=== PATIENT | female | born 1955 ===

== ENCOUNTER → 2022-01-31 | Outpatient (CLI) | payer BC | LOC: MC.RAD 15:27 | DX: Z12.31 Encounter for screening mammogram for malignant neoplasm of breast (principal) ==

== ENCOUNTER → 2023-06-26 | Outpatient (CLI) | payer BC | LOC: MC.RAD 04-24 09:00 | DX: Z12.31 Encounter for screening mammogram for malignant neoplasm of breast (principal) ==